=== PATIENT | female | born 2000 | race Caucasian/White ===

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

== ENCOUNTER 2018-08-31 20:06 | Emergency (ER) | payer OTHER ==
[2018-08-31] MEDS ORDERED: Ketorolac Tromethamine 30 MG/ML VIAL ONE (22:06)
--- NOTE | 2018-08-31 22:08 | RAD ---
RIGHT HIP TWO VIEWS: HISTORY: Right hip pain. FINDINGS: No fracture, dislocation, or bony destruction is seen. POS: [facility] [place]
== END 2018-08-31 22:49 | disposition home or self-care (01) ==
LOC: ERS 20:06
DX: M25.551 Pain in right hip (principal); F41.9 Anxiety disorder, unspecified; F32.9 Major depressive disorder, single episode, unspecified; J45.909 Unspecified asthma, uncomplicated
CPT/HCPCS: 96372; J1885

== ENCOUNTER 2019-04-05 12:10 | Emergency (ER) | payer OTHER ==
--- NOTE | 2019-04-05 12:51 | RAD ---
Exam:Right hip 2 views HISTORY: Pain. Dislocation. COMPARISON: 08/31/2018 FINDINGS: Visualized bony pelvis and sacrum are unremarkable Contour of the femoral head is maintained. Preserved hip joint space. No fracture or dislocation. IMPRESSION: Unremarkable right hip 2 views. No change.
== END 2019-04-05 13:07 | disposition home or self-care (01) ==
LOC: ERS 12:10
DX: S76.011A Strain of muscle, fascia and tendon of right hip, initial encounter (principal); J45.909 Unspecified asthma, uncomplicated; F32.9 Major depressive disorder, single episode, unspecified; F41.9 Anxiety disorder, unspecified; X50.9XXA Other and unspecified overexertion or strenuous movements or postures, initial encounter

== ENCOUNTER 2020-01-12 12:48 | Outpatient (CLI) | payer OTHER ==
[2020-01-12 13:36] LABS: BHCG - Serum Negative (NEGATIVE); Pregs Control Background? CLEAR/WHITE (CLR/WHITE); Pregs Control Bar Appear? YES (CONTROL BAR)
--- NOTE | 2020-01-12 15:10 | RAD ---
Exam: Cystogram HISTORY: Possible bladder injury. Abnormal finding on trauma CT from 11/05/2019 Exposure: 1.1 minutes, 912.4 mcg be per meter square FINDINGS: Superintendent radiograph: Nonspecific bowel gas pattern. No osseous abnormalities. Retrograde opacification of the bladder with 250 cc of Isovue. Contrast opacifies the bladder. Ade[place] te bladder distention. No filling defect. No extravasation. Patient spontaneously voided. No significant post void residual. No evidence of leak or extravasation of the post void images. IMPRESSION: No evidence of leak or extravasation.
== END 2020-01-12 12:49 | disposition home or self-care (01) ==
LOC: RAD 12:48
PROVIDERS: ATTEND Urology
DX: R93.41 Abnormal radiologic findings on diagnostic imaging of renal pelvis, ureter, or bladder (principal)
CPT/HCPCS: 36415; 51600; 74430; 84703